=== PATIENT | female | born 1980 | race American Indian/Alaskan Native ===

== ENCOUNTER 2022-07-11 14:23 | Emergency (ER) | payer OTHER ==
[2022-07-11] MEDS ORDERED: Sodium Chloride 0.9% 10 ML Syringe FLUSH PRN (14:42)
[2022-07-11 15:39] LABS: TROPONIN I HIGH SENSITIVITY 5.7 pg/mL (<=60.3)
[2022-07-11] MEDS ORDERED: Nitrofurantoin Monohydrate/Macrocrystalline 100 MG Cap PO ONE (16:10)
== END 2022-07-11 16:25 ==
LOC: JP.ED 14:23
DX: N39.0 Urinary tract infection, site not specified (principal); E03.9 Hypothyroidism, unspecified; D50.9 Iron deficiency anemia, unspecified; D75.839 Thrombocytosis, unspecified; Z79.899 Other long term (current) drug therapy
CPT/HCPCS: 36415; 80048; 80305; 81001; 82728; 83735; 84439; 84443; 84484; 85025; 93005; 99285; A9270; 93010; 99283